=== PATIENT | female | born 1950 | race Caucasian/White ===

== ENCOUNTER 2021-05-02 10:23 | Emergency (ER) | payer MEDICARE, OTHER, SELFPAY ==
[2021-05-02 10:46] VITALS: BP 95/71; PULSE 84; RESP 16; TEMP 36.8; O2SAT 100; BMI 19.1
[2021-05-02] MEDS: LIDOCAINE/PRILOCAINE 5 GM TOP (12:54)
[2021-05-02 14:00] VITALS: BP 98/70; PULSE 80; RESP 18; O2SAT 98
--- NOTE | 2021-05-02 14:15 | ED_ITS ---
HPI - Skin/Abscess/Foreign Bdy <TERESE Owens - Last Filed: 05/02/21 15:20> General Chief complaint: Skin/Abscess/Foreign Body Stated complaint: tripped and have cut under lt eye Time Seen by Provider: 05/02/21 11:55 Source: patient Mode of arrival: Ambulatory History of Present Illness HPI narrative: 71-year-old female presents to the emergency department for 2 small lacerations with which occurred when she slipped on a non rubber mat while getting into the bathtub. She had the left side of her face with a small less than 1 cm last duration underneath her left eye, and another 2 cm laceration above her left eye with avulsion. Patient denies loss of consciousness, headache, dizziness, difficulty concentrating, vision changes, or any other neurological complaint. She reports that her lacerations are painful however she does not want anything additional for pain at this time. She does not have edema or swelling of her periorbital space. She does not have any vision changes, limitations to her urines, or eye pain. She denies any face pain, is able to chew, denies any nose pain, or any other complaint. Tetanus up to date: yes Related Data Allergies Allergy/AdvReac Type Severity Reaction Status Date / Time latex Allergy Rash Verified 05/02/21 10:49 Review of Systems <TERESE Owens - Last Filed: 05/02/21 15:20> Review of Systems Narrative: General: denies fever, chills Head/Neck: denies headache, neck pain, endorses 2 small lacerations above and below her left eye with mild pain. Eyes: denies visual changes, eye pain, denies pain with eye movement Cardio: denies chest pain, palpitations Respiratory: denies shortness of breath, cough GI: denies abdominal pain, nausea, vomiting, or diarrhea : denies dysuria, hematuria MSK: denies joint pain, muscle weakness Skin: denies rash, itching, 2 small lacerations above and below her left eye Neuro: denies numbness, tingling Patient History <TERESE Owens - Last Filed: 05/02/21 15:20> Social History Smoking Status: Never smoker Smoking Status: Never smoker alcohol intake frequency: 0-2 drinks per day Alcohol type: wine Substance Use Type: does not use Exam <TERESE Owens - Last Filed: 05/02/21 15:20> Narrative Exam Narrative: Independently reviewed vitals signs and nursing notes. General: Awake, alert, nontoxic, no cardiorespiratory distress Head/Neck: Atraumatic, neck full range of motion Eyes: EOMI, conjunctiva normal, visual acuity equal left right and both eyes, 20/25 without corrective lenses. Nose: nares patent, no rhinorrhea Mouth/Throat: moist mucus membranes, posterior pharynx normal, no oral lesions Cardio: Regular rate and rhythm, no peripheral edema Respiratory: respirations unlabored without wheezing, stridor, or rales. No retractions. GI: Abdomen soft, nontender MSK: Moves all extremities, neurovascularly intact Skin: Normal capillary refill, no rash, <1 cm laceration under her left eye, 2 cm laceration above her left eyebrow with small avulsion and tissue missing. These wounds were cleansed with Hibiclens and saline by myself, wound edges of both were already well approximated, Dermabond placed to both recent and allowed to dry, 4 quarter-inch Steri-Strips placed to the laceration above her left eye to cover help keep wound edges approximated. Patient tolerated well. Neuro: Normal speech and cognition, normal gait Initial Vital Signs Initial Vital Signs: Vital Signs Temperature 98.2 F 05/02/21 10:46 Pulse Rate 84 05/02/21 10:46 Respiratory Rate 16 05/02/21 10:46 Blood Pressure 95/71 05/02/21 10:46 Pulse Oximetry 100 05/02/21 10:46 Procedures <TERESE Owens - Last Filed: 05/02/21 15:20> Laceration Repair Laceration 1: Site: face Side (If applicable): left Size (cm): 2 Description: linear and clean Depth: simple, single layer Local Anesthetic: other anesthetic (Prilocaine) Pre-repair: wound explored Skin layer closed with: steri-strips (For quarter-inch Steri-Strips were used to approximate and cover avulsed laceration above patient's left eyebrow. Wound adhered with Dermabond prior to Steri-Strip application. Wound edges approximated very closely prior to my Dermabond application and Steri-Strips, the wound is very superficial i) Course <TERESE Owens - Last Filed: 05/02/21 15:20> Orders Ordered: Discontinued Medications Lidocaine/Prilocaine (Lidocaine/Prilocaine 30 Gm) 1 applic TOP Q6H PRN PRN Reason: Pain, Mild (1-3) Lidocaine/Prilocaine (Lidocaine/Prilocaine 5 Gm) 2 gm TOP NOW ONE Stop: 05/02/21 13:01 Lidocaine/Prilocaine (Lidocaine/Prilocaine 5 Gm) 5 gm TOP NOW ONE Stop: 05/02/21 13:01 Last Admin: 05/02/21 12:54 Dose: 5 gm Documented by: HANK Vital Signs Vital signs: Vital Signs - 8 hr 05/02/21 14:00 Pulse Rate 80 Respiratory Rate 18 Blood Pressure 98/70 Pulse Oximetry 98 MDM - Skin/Abscess/Foreign Bdy <TERESE Owens - Last Filed: 05/02/21 15:20> [facility] Narrative Medical decision making narrative: 71-year-old female presented to the emergency department today for 2 small lacerations above and below her left eye from slipping while getting into the bathtub on a rubber-less mat last night. Both of these wounds were very superficial and were cleaned with Hibiclens prior to repair. Patient does not take any anticoagulants, does not have any periorbital swelling, EOMs intact, visual acuity without deficits, visual changes, headache, or any other problem. Wound edges were sealed with Dermabond to both lacerations. The small laceration below her left eye is very superficial and does not need any Steri- Strips. The laceration above her left eye had a small piece of tissue missing and small avulsion. This was cleaned and dried, Dermabond applied, and for quarter-inch Steri-Strips were placed over this. Patient educated on how to clean her face without disrupting the wounds. Patient understands to return to the emergency department if she has any worsening swelling, pain, redness, or eye pain. Differential includes periorbital cellulitis although there are no signs of erythema, edema, or other problem. Patient is appropriate and amenable to discharge home. Vital signs are stable on repeat examination is unremarkable. Patient has been informed of results. Patient has been given strict return to ER precautions for any new or worsening symptoms. Patient understands to follow up closely with outpatient providers as instructed. Patient understands plan and agrees to discharge home. All questions and concerns answered at this time. Discharge Plan Departure Patient Disposition: Home Clinical Impression: Face lacerations Instructions: DI for Laceration Repair-Skin Glue Activity Restrictions/Additional Instructions: *You have been diagnosed with facial lacerations. Please allow these Steri- Strips to fall off on their own. Avoid scratching or rubbing this area until the wounds are healed. He can allow water to run over is usually although it may make the strips fall off sooner. You can wash her hair, and take a shower, try to avoid rubbing the area near your strips is they might follow up sooner as well. You have some more to use if that happens. Please keep these covered with sunscreen for the next 6 months to a year when outside to help with any scar. If you develop any redness or swelling to these areas that is getting worse please return for possible antibiotics, however I do not think this is going to be your case. Please use ice a couple times a day for the next couple days to help with bruising. *What to do: *Please continue to take your regular medications as directed. [ ] New medication prescriptions sent to your pharmacy: [ ] [ ] New medication written as a paper prescription [ x] No new medications given *Please follow up with your primary care provider in 2-3 days, call for an appointment. Let them know you were seen in the Emergency Department and that we ask that you be seen in follow up. We will electronically transmit a record of today's note if your PCP is in our system *If you do not have a primary care provider please contact the [facility] Resource line at [phone]. They will ask some questions about your medical history and help get you set up with a doctor in the community. *Return to Emergency Department if you should have any new, worsening or concerning symptoms, such as [fever greater than 101F, chills, worsening pain, persistent vomiting or other bothersome symptoms] Referrals: Miscellaneous,Doctor, MD [Primary Care Provider] -
== END 2021-05-02 14:00 | disposition home or self-care (01) ==
PROVIDERS: Emergency Provider Nurse Practitioner Critical Care Medicine
DX: S01.412A Laceration without foreign body of left cheek and temporomandibular area, initial encounter (principal); S01.81XA Laceration without foreign body of other part of head, initial encounter; W18.40XA Slipping, tripping and stumbling without falling, unspecified, initial encounter; Y93.89 Activity, other specified; Y92.89 Other specified places as the place of occurrence of the external cause
CPT/HCPCS: 12011; 99281; 99282